=== PATIENT | female | born 1950 | race Hispanic/Latino ===

== ENCOUNTER 2025-01-17 18:08 | Inpatient (IN) | payer MEDICARE ==
[~2025-01-17] VITALS: Ht 162.6 cm; Wt 49.4 kg
[2025-01-17 19:08] LABS: BASOPHILS % 0.4 % (0.0-1.0); EOSINOPHILS % 0.0 % (0.0-6.0); LYMPHOCYTES % 7.2 % (18.0-39.1); MONOCYTES % 4.4 % (4.4-11.3); NEUTROPHILS % 87.9 % (38.7-80.0); RED CELL DISTRIBUTION WIDTH 14.6 % (11.7-14.4)
[2025-01-17] MEDS ORDERED: SODIUM CHLORIDE 0.9% 500ML 500 ML ONE (19:18)
[2025-01-17 19:22] LABS: INR 0.95
[2025-01-17 19:25] LABS: LEUKOCYTE ESTERASE ,URINE NEGATIVE (NEGATIVE); PROTEIN,URINE DIPSTICK >=300 (NEGATIVE); URINE UROBILINOGEN 0.2 mg/dL (0.2 - 1)
[2025-01-17 19:28] LABS: EPITHELIAL CELLS,URINE FEW /LPF; WBC,URINE (MAN) 0-5 /HPF (0-5)
[2025-01-17] MEDS: SODIUM CHLORIDE 0.9% IV SCH (19:28)
[2025-01-17] MEDS: ACETAMINOPHEN 325 MG TAB PO ONE (19:28)
[2025-01-17 19:30] LABS: EST GLOMERULAR FILTRATION RATE 84.0 ML/MIN (>=60)
[2025-01-17] MEDS ORDERED: SODIUM CHLORIDE FLUSH 10 ML SYR INJ PRN (22:00)
[2025-01-17] MEDS ORDERED: ONDANSETRON HCL INJ 2MG/ML 2ML 2 MG/ML VIAL IV PRN (22:00)
[2025-01-17 22:43] VITALS: TEMP 97.1
[2025-01-17] MEDS: DEXTROSE 50% SYRINGE 50 ML IV STA (23:07)
[2025-01-17 23:23] VITALS: PULSE 75; RESP 17
[2025-01-18] VITALS (9 sets, daily range): BP systolic 119–172; BP diastolic 58–85; PULSE 76–103; RESP 16–20; TEMP 97.6–102.1; O2SAT 96–100
[2025-01-18] MEDS: SODIUM CHLORIDE 0.9% 1000ML 1,000 ML IV SCH ×2 (00:27→08:30)
[2025-01-18] MEDS ORDERED: LANTUS 3ML100 UNITS/ SQ (00:42)
[2025-01-18] MEDS ORDERED: DONEPEZIL HCL10 MG PO (00:42)
[2025-01-18] MEDS ORDERED: ATORVASTATIN CA10 MG PO (00:42)
[2025-01-18] MEDS ORDERED: LOSARTAN POTASS50 MG PO (00:42)
[2025-01-18] MEDS ORDERED: MEMANTINE HCL10 MG PO (00:42)
[2025-01-18] MEDS ORDERED: JARDIANCE25 MG PO (00:42)
[2025-01-18] MEDS ORDERED: METFORMIN HCL500 MG PO (00:42)
[2025-01-18] MEDS: ACETAMINOPHEN 325 MG TAB PO PRN (04:30)
[2025-01-18 07:36] LABS: BASOPHILS % 0.7 % (0.0-1.0); EOSINOPHILS % 0.2 % (0.0-6.0); LYMPHOCYTES % 7.6 % (18.0-39.1); MONOCYTES % 4.3 % (4.4-11.3); NEUTROPHILS % 87.0 % (38.7-80.0); RED CELL DISTRIBUTION WIDTH 14.6 % (11.7-14.4)
[2025-01-18 08:16] LABS: EST GLOMERULAR FILTRATION RATE 93.0 ML/MIN (>=60)
[2025-01-18] MEDS ORDERED: DEXTROSE 50% SYRINGE 50 ML IV PRN (09:15)
[2025-01-18] MEDS: INSULIN LISPRO 100 UNIT/1 ML 3ML VIAL SQ SCH (11:30)
[2025-01-18] MEDS: DEXTROSE 5%/0.9% SOD CHL 1,000 ML IV SCH (13:16)
[2025-01-18] MEDS: MEMANTINE 10 MG TAB PO SCH (16:17)
[2025-01-18] MEDS: DONEPEZIL HCL 5 MG TAB PO SCH (23:10)
[2025-01-18] MEDS: ATORVASTATIN 10 MG TAB PO SCH (23:10)
[2025-01-19] VITALS (10 sets, daily range): BP systolic 122–162; BP diastolic 69–76; PULSE 87–99; RESP 17–20; TEMP 97.9–101.7; O2SAT 94–100
[2025-01-19 05:35] LABS: BASOPHILS % 0.8 % (0.0-1.0); EOSINOPHILS % 0.0 % (0.0-6.0); LYMPHOCYTES % 13.3 % (18.0-39.1); MONOCYTES % 5.4 % (4.4-11.3); NEUTROPHILS % 80.3 % (38.7-80.0); RED CELL DISTRIBUTION WIDTH 14.2 % (11.7-14.4)
[2025-01-19 06:21] LABS: EST GLOMERULAR FILTRATION RATE 93.0 ML/MIN (>=60)
[2025-01-19] MEDS: LOSARTAN POTASSIUM 25 MG TAB PO SCH (08:52)
[2025-01-19] MEDS: MIRTAZAPINE 15 MG TAB PO SCH (16:33)
[2025-01-19] MEDS: POTASSIUM CHLORIDE 10MEQ EA PO ONE ×2 (18:24)
[2025-01-20] VITALS (11 sets, daily range): BP systolic 123–161; BP diastolic 63–80; PULSE 76–108; RESP 17–20; TEMP 97.2–102.5; O2SAT 94–100
[2025-01-20 05:32] LABS: EST GLOMERULAR FILTRATION RATE 92.0 ML/MIN (>=60)
[2025-01-20] MEDS ORDERED: MAGNESIUM SULFATE 2GM/50ML IV ONE (07:45)
[2025-01-20] MEDS: LOSARTAN POTASSIUM 100 MG TAB PO SCH (09:50)
[2025-01-20] MEDS: MAGNESIUM SULFATE 2GM/50ML 50 ML IV ONE (09:51)
[2025-01-20] MEDS ORDERED: IOPAMIDOL 370 MG/ML 100 ML INFUS..BTL INJ ONE (10:33)
[2025-01-20] MEDS: KCL 20MEQ/.9 SOD CHL 1,000 ML IV SCH (12:32)
[2025-01-20] MEDS: ENOXAPARIN SOD INJ 40 MG/0.4 ML SYR SC SCH (17:52)
[2025-01-21] VITALS (9 sets, daily range): BP systolic 117–140; BP diastolic 55–77; PULSE 75–98; RESP 17–20; TEMP 97.6–101.2; O2SAT 95–100
[2025-01-21 05:59] LABS: EST GLOMERULAR FILTRATION RATE 88.0 ML/MIN (>=60)
[2025-01-21 06:12] LABS: PHOSPHORUS 2.3 MG/DL (2.3-4.7)
[2025-01-21 08:13] LABS: BASOPHILS % 0.9 % (0.0-1.0); EOSINOPHILS % 0.0 % (0.0-6.0); LYMPHOCYTES % 13.4 % (18.0-39.1); MONOCYTES % 2.4 % (4.4-11.3); NEUTROPHILS % 83.0 % (38.7-80.0); RED CELL DISTRIBUTION WIDTH 14.5 % (11.7-14.4)
[2025-01-21 09:47] LABS: EOSINOPHILS % (MANUAL) 14 % (0-7); LYMPHOCYTES % (MANUAL) 11 % (19-48); MONOCYTES % (MANUAL) 2 % (3.4-9.0); NEUTROPHILS % (MANUAL) 73 % (40-74)
[2025-01-21 09:48] LABS: PLATELET ESTIMATE MODERATELY DECREASED; PLATELET MORPHOLOGY COMMENT NORMAL; RBC MORPHOLOGY COMMENT NORMAL
[2025-01-22] VITALS (8 sets, daily range): BP systolic 117–160; BP diastolic 55–77; PULSE 82–115; RESP 17–20; TEMP 98–101; O2SAT 96–100
[2025-01-22 06:29] LABS: BASOPHILS % 0.5 % (0.0-1.0); EOSINOPHILS % 0.0 % (0.0-6.0); LYMPHOCYTES % 13.8 % (18.0-39.1); MONOCYTES % 2.0 % (4.4-11.3); NEUTROPHILS % 82.8 % (38.7-80.0); RED CELL DISTRIBUTION WIDTH 14.6 % (11.7-14.4)
[2025-01-22 09:37] LABS: LYMPHOCYTES % (MANUAL) 4 % (19-48); MONOCYTES % (MANUAL) 5 % (3.4-9.0); NEUTROPHILS % (MANUAL) 91 % (40-74); PLATELET ESTIMATE MODERATELY DECREASED; PLATELET MORPHOLOGY COMMENT NORMAL
[2025-01-22 09:38] LABS: RBC MORPHOLOGY COMMENT NORMAL
[2025-01-22] MEDS: MIRTAZAPINE 15 MG TAB PO SCH (20:54)
[2025-01-23] VITALS (11 sets, daily range): BP systolic 111–165; BP diastolic 65–81; PULSE 71–121; RESP 18–26; TEMP 97.5–102.9; O2SAT 9–100
[2025-01-23] MEDS ORDERED: PREDNISONE 5 MG TAB PO SCH (09:00)
[2025-01-23] MEDS ORDERED: ENOXAPARIN SOD INJ 40 MG/0.4 ML SYR SC ONE (09:45)
[2025-01-23] MEDS: PREDNISONE 20 MG TAB PO SCH (10:16)
[2025-01-23] MEDS: POTASSIUM CHLORIDE 10MEQ EA PO ONE (10:16)
[2025-01-23] MEDS: FUROSEMIDE INJ 10 MG/ML 4 ML VIAL IV ONE (10:17)
[2025-01-23] MEDS ORDERED: IOPAMIDOL 370 MG/ML 100 ML INFUS..BTL INJ ONE (10:29)
[2025-01-23] MEDS: FONDAPARINUX SODIUM 5 MG/0.4 ML SYRINGE SQ ONE (11:30)
[2025-01-23 14:16] LABS: BASOPHILS % 0.2 % (0.0-1.0); EOSINOPHILS % 0.0 % (0.0-6.0); LYMPHOCYTES % 17.3 % (18.0-39.1); MONOCYTES % 1.6 % (4.4-11.3); NEUTROPHILS % 80.4 % (38.7-80.0); RED CELL DISTRIBUTION WIDTH 15.1 % (11.7-14.4)
[2025-01-23 14:42] LABS: EST GLOMERULAR FILTRATION RATE 87.0 ML/MIN (>=60)
[2025-01-23 23:14] LABS: BAND NEUTROPHILS % (MANUAL) 20 %; LYMPHOCYTES % (MANUAL) 5 % (19-48); METAMYELOCYTES % (MANUAL) 1 % (0-0); MONOCYTES % (MANUAL) 1 % (3.4-9.0); NEUTROPHILS % (MANUAL) 73 % (40-74)
[2025-01-23 23:15] LABS: PLATELET MORPHOLOGY COMMENT NORMAL; RBC MORPHOLOGY COMMENT NORMAL
[2025-01-23 23:16] LABS: PLATELET ESTIMATE MODERATELY DECREASED
[2025-01-24] VITALS (7 sets, daily range): BP systolic 115–137; BP diastolic 63–94; PULSE 73–76; RESP 18–20; TEMP 97.5–98.4; O2SAT 98–100
[2025-01-24 08:18] LABS: BASOPHILS % 0.2 % (0.0-1.0); EOSINOPHILS % 0.0 % (0.0-6.0); LYMPHOCYTES % 18.0 % (18.0-39.1); MONOCYTES % 5.5 % (4.4-11.3); NEUTROPHILS % 75.7 % (38.7-80.0); RED CELL DISTRIBUTION WIDTH 15.1 % (11.7-14.4)
[2025-01-24 09:02] LABS: EST GLOMERULAR FILTRATION RATE 91.0 ML/MIN (>=60)
[2025-01-24] MEDS: POTASSIUM CHLORIDE 10MEQ EA PO ONE (11:04)
[2025-01-24] MEDS: FUROSEMIDE INJ 10 MG/ML 4 ML VIAL IV ONE (11:04)
[2025-01-24 12:08] LABS: BAND NEUTROPHILS % (MANUAL) 18 %; LYMPHOCYTES % (MANUAL) 4 % (19-48); MONOCYTES % (MANUAL) 4 % (3.4-9.0); NEUTROPHILS % (MANUAL) 70 % (40-74); REACTIVE LYMPHOCYTES 4
[2025-01-24 12:12] LABS: PLATELET ESTIMATE SLIGHTLY DECREASED; PLATELET MORPHOLOGY COMMENT NORMAL; RBC MORPHOLOGY COMMENT NORMAL
[2025-01-24] MEDS: FONDAPARINUX SODIUM 2.5 MG/0.5 ML SYR SQ SCH (13:06)
[2025-01-25] VITALS: BP 120/75; PULSE 70; RESP 18; TEMP 97.5; O2SAT 100
[2025-01-25 05:30] VITALS: BP 126/57; PULSE 72; RESP 18; TEMP 97.7; O2SAT 98
[2025-01-25] MEDS: PREDNISONE 10 MG TAB PO SCH (09:01)
[2025-01-25 09:29] VITALS: BP 140/72; PULSE 77; RESP 19; TEMP 98.7; O2SAT 98
[2025-01-25] MEDS ORDERED: GADOBENATE DIMEGLUMINE 1 ML IV ONE (11:55)
[2025-01-25 14:05] VITALS: BP 119/69; PULSE 73; RESP 18; TEMP 97.7; O2SAT 96
[2025-01-25 16:23] VITALS: BP 120/65; PULSE 80; RESP 19; TEMP 97.9; O2SAT 100
[2025-01-25 20:00] VITALS: BP 122/69; PULSE 85; RESP 16; TEMP 96.3; O2SAT 100
[2025-01-26] VITALS (7 sets, daily range): BP systolic 112–140; BP diastolic 66–85; PULSE 71–104; RESP 17–19; TEMP 97–97.9; O2SAT 96–100
[2025-01-26 05:20] LABS: BASOPHILS % 0.2 % (0.0-1.0); EOSINOPHILS % 0.0 % (0.0-6.0); LYMPHOCYTES % 17.4 % (18.0-39.1); MONOCYTES % 7.1 % (4.4-11.3); NEUTROPHILS % 74.7 % (38.7-80.0); RED CELL DISTRIBUTION WIDTH 14.7 % (11.7-14.4)
[2025-01-26 06:13] LABS: EST GLOMERULAR FILTRATION RATE 92.0 ML/MIN (>=60)
[2025-01-26] MEDS: PREDNISONE 20 MG TAB PO SCH (09:54)
[2025-01-26 10:30] LABS: LYMPHOCYTES % (MANUAL) 11 % (19-48); MONOCYTES % (MANUAL) 8 % (3.4-9.0); NEUTROPHILS % (MANUAL) 79 % (40-74); REACTIVE LYMPHOCYTES 2
[2025-01-26 10:31] LABS: PLATELET ESTIMATE SLIGHTLY DECREASED; PLATELET MORPHOLOGY COMMENT NORMAL
[2025-01-26] MEDS: MEGESTROL ACETATE 40 MG TAB PO SCH (12:12)
[2025-01-27] VITALS: BP 125/73; PULSE 73; RESP 18; TEMP 97.5; O2SAT 100
[2025-01-27 08:00] VITALS: BP 139/77; PULSE 92; RESP 18; TEMP 98.9; O2SAT 97
[2025-01-27] MEDS: INSULIN GLARGINE 100 UNITS/ML VIAL SQ ONE (09:36)
[2025-01-27 09:54] VITALS: BP 139/77; PULSE 92; RESP 18; TEMP 98.9; O2SAT 97
[2025-01-27] MEDS ORDERED: ONDANSETRON ODT4 MG SL (11:07)
[2025-01-27] MEDS ORDERED: MEGESTROL ACETA40 MG PO (11:08)
[2025-01-27] MEDS ORDERED: REMERON15 MG PO (11:09)
[2025-01-27] MEDS ORDERED: [UNRECOGNIZED DRUG - REMARK] (11:09)
[2025-01-27 12:05] VITALS: BP 121/66; PULSE 92; RESP 18; TEMP 98.6; O2SAT 97
[2025-01-28 06:12] LABS: RHEUMATOID FACTOR 18.9 IU/mL (<14.0)
[2025-01-28 06:40] LABS: CYCLIC CITRULLINATED PEPTID AB >250 units (0-19)
[2025-01-28] MEDS ORDERED: PREDNISONE 5 MG TAB PO SCH (09:00)
== END 2025-01-27 16:11 | disposition home health service (06) | DRG 638 ==
LOC: ER 18:48 → ERHOLD 21:57 → MED/SURG 23:54 → OBSVTOIN 01-18 09:11
PROVIDERS: ADMIT Internal Medicine; ATTEND Internal Medicine
DX: E11.649 Type 2 diabetes mellitus with hypoglycemia without coma (principal); I47.29 Other ventricular tachycardia; R65.10 Systemic inflammatory response syndrome (SIRS) of non-infectious origin without acute organ dysfunction; Z68.1 Body mass index [BMI] 19.9 or less, adult; D75.829 Heparin-induced thrombocytopenia, unspecified; R62.7 Adult failure to thrive; E11.65 Type 2 diabetes mellitus with hyperglycemia; I10 Essential (primary) hypertension; E78.5 Hyperlipidemia, unspecified; M35.3 Polymyalgia rheumatica; I95.9 Hypotension, unspecified; I05.0 Rheumatic mitral stenosis; E87.6 Hypokalemia; R63.0 Anorexia; R53.81 Other malaise; R50.9 Fever, unspecified; G30.9 Alzheimer's disease, unspecified; F02.80 Dementia in other diseases classified elsewhere, unspecified severity, without behavioral disturbance, psychotic disturbance, mood disturbance, and anxiety; F01.50 Vascular dementia, unspecified severity, without behavioral disturbance, psychotic disturbance, mood disturbance, and anxiety; T45.515A Adverse effect of anticoagulants, initial encounter; Z79.4 Long term (current) use of insulin; Z79.84 Long term (current) use of oral hypoglycemic drugs; Z79.52 Long term (current) use of systemic steroids
CPT/HCPCS: 36415; 70450; 70551; 71045; 71260; 72157; 72158; 74177; 80048; 80053; 81001; 82550; 82948; 83036; 83605; 83735; 84100; 84443; 85025; 85610; 85730; 86022; 86039; 86140; 86200; 86431; 87040; 87086; 93005; 93306; 93970; 94799; 96372; 99252; 99284; G0378; J0696; J1650; J1652; J1815; J1938; J2543; J3475; J7030; J7040; J7042; J7050; J7512; J7799; Q9967

== ENCOUNTER 2025-01-28 08:58 | Emergency (ER) | payer MEDICARE ==
[~2025-01-28] VITALS: Ht 162.6 cm; Wt 49.4 kg
[~2025-01-28 08:58] MED LIST: ATORVASTATIN CA10 MG PO; DONEPEZIL HCL10 MG PO; JARDIANCE25 MG PO; LANTUS 3ML100 UNITS/ SQ; LOSARTAN POTASS50 MG PO; MEGESTROL ACETA40 MG PO; MEMANTINE HCL10 MG PO; METFORMIN HCL500 MG PO; ONDANSETRON ODT4 MG SL; REMERON15 MG PO; [UNRECOGNIZED DRUG - REMARK]
[2025-01-28 09:05] VITALS: PULSE 98; RESP 17; TEMP 99.9; O2SAT 99
[2025-01-28] MEDS: ACETAMINOPHEN 325 MG TAB PO ONE (09:48)
== END 2025-01-28 10:29 | disposition home or self-care (01) ==
LOC: ER 09:02
DX: R53.1 Weakness (principal); I10 Essential (primary) hypertension; E11.9 Type 2 diabetes mellitus without complications; E78.5 Hyperlipidemia, unspecified; F03.90 Unspecified dementia, unspecified severity, without behavioral disturbance, psychotic disturbance, mood disturbance, and anxiety
CPT/HCPCS: 99283